=== PATIENT | female | born 1950 | race Two or more races ===

== ENCOUNTER 2019-03-28 13:57 | Emergency (ER) | payer BC, OTHER ==
[~2019-03-28] VITALS: Ht 149.9 cm; Wt 83.0 kg
[2019-03-28 14:46] LABS: Urine Bacteria NONE SEEN /hpf (None Seen); Urine Blood Negative /uL (Negative); Urine Specific Gravity 1.011 (1.001-1.035); Urine WBC 4 /hpf (0 - 5)
[2019-03-28 15:27] LABS: Basophils # (auto) 0.1 uL; Basophils % (auto) 1.1 % (0.0-2.0); Eosinophils # (auto) 0.3 uL; Eosinophils % (auto) 4.1 % (0.0-7.0); Hemoglobin 13.9 g/dL (12.2-16.2); Lymphocytes % (auto) 24.4 % (10.0-50.0); Mean Corpuscular Hemoglobin 29.5 pg (28.0-32.0); Mean Corpuscular Hgb Conc. 33.1 g/dL (32.0-36.0); Mean Corpuscular Volume 89.2 fL (80.0-100.0); Monocytes # (auto) 0.7 uL; Monocytes % (auto) 8.7 % (0.0-12.0); Neutrophils % (auto) 61.7 % (37.0-80.0); Nucleated Red Blood Cells % 0.1 %; Platelet Count (auto) 323 10^3/uL (140-450); Red Cell Distribution Width 14.1 % (11.8-14.3); White Blood Cell 8.2 10^3/uL (4.4-10.8)
[2019-03-28 15:37] LABS: Anion Gap 8 (5-15); BUN/Creatinine Ratio 22.5; Blood Urea Nitrogen 18 mg/dL (7-18); Calcium 9.4 mg/dL (8.5-10.1); Carbon Dioxide 27 mmol/L (21-32); Chloride 101 mmol/L (98-107); GFR African American 92 mL/min; GFR Non-African American 76 mL/min; Glucose 94 mg/dL (74-106); Sodium 136 mmol/L (136-145)
[2019-03-28 15:42] LABS: Alanine Aminotransferase 28 U/L (13-56); Alkaline Phosphatase 106 U/L (45-117); Aspartate Aminotransferase 19 U/L (15-37); Bilirubin, Total 0.4 mg/dL (0.2-1.0)
[2019-03-28 16:00] VITALS: BP 141/58
== END 2019-03-28 16:09 | disposition home or self-care (01) ==
LOC: ER 14:21
DX: J02.9 Acute pharyngitis, unspecified (principal); E78.5 Hyperlipidemia, unspecified
CPT/HCPCS: 36415; 71046; 80053; 81001; 84484; 85025; 93005